=== PATIENT | male | born 1965 | race African-American/Black ===

== ENCOUNTER 2022-12-18 21:48 | Emergency (ER) | payer SELFPAY ==
[2022-12-18] MEDS ORDERED: Famotidine 20 MG/2 ML SDV IVPUSH ONE (23:16)
[2022-12-18] MEDS ORDERED: Sodium Chloride 0.9% 500 ML IV ONE (23:16)
[2022-12-18] MEDS ORDERED: Ondansetron 4 MG/2 ML SDV IVPUSH ONE (23:16)
[2022-12-18] MEDS ORDERED: Morphine 4 MG/ML Syringe IVPUSH ONE (23:16)
[2022-12-18 23:27] LABS: BASOPHILS PERCENT AUTO 0.1 % (0.0-1.5); EOSINOPHILS ABSOLUTE AUTO 0.2 K/uL (0.0-0.7); EOSINOPHILS PERCENT AUTO 3.3 % (0.0-7.0); HEMATOCRIT 44.5 % (38.0-50.0); HEMOGLOBIN 15.7 g/dL (13.0-17.0); LYMPHOCYTES ABSOLUTE AUTO 1.2 K/uL (0.6-2.4); LYMPHOCYTES PERCENT AUTO 16.9 % (16.0-40.0); MEAN CORPUSCULAR HEMOGLOBIN 29.7 pg (27.0-32.0); MEAN CORPUSCULAR HGB CONC 35.3 g/dL (31.0-37.0); MEAN CORPUSCULAR VOLUME 84.3 fL (80.0-98.0); MONOCYTES ABSOLUTE AUTO 0.6 K/uL (0.0-0.8); MONOCYTES PERCENT AUTO 9.2 % (0.0-15.0); NEUTROPHILS ABSOLUTE AUTO 4.9 K/uL (1.4-5.7); NEUTROPHILS PERCENT AUTO 70.5 % (48.0-80.0); NRBC ABSOLUTE 0 K/uL; PLATELET COUNT,PLT 164 K/uL (150-400); RED BLOOD CELL COUNT 5.28 M/uL (4.50-5.90); WHITE BLOOD CELL COUNT,WBC 6.92 K/uL (4.0-11.0)
[2022-12-19 00:01] LABS: LACTIC ACID 1.1 mmol/L (0.4-2.0)
[2022-12-19 00:03] LABS: ALBUMIN 3.9 g/dL (3.4-5.0); BILIRUBIN TOTAL 0.6 mg/dL (0.2-1.0); CALCIUM 9.1 mg/dL (8.5-10.1); CREATININE 1.2 mg/dL (0.8-1.3); EST CRCL DRUG DOSING (CG) 81.38 mL/min; MAGNESIUM 2.1 mg/dL (1.8-2.4); POTASSIUM,K 4.5 mmol/L (3.5-5.1); PROTEIN TOTAL,TP 7.9 g/dL (6.4-8.2)
[2022-12-19] MEDS ORDERED: Labetalol 100 MG/20 ML MDV IVPUSH ONE (00:10)
[2022-12-19] MEDS ORDERED: Iopamidol 755 MG/ML 500 ML Multipack Bottle IVPUSH STA (00:39)
[2022-12-19] MEDS ORDERED: Morphine 4 MG/ML Syringe IVPUSH ONE (00:40)
[2022-12-19] MEDS ORDERED: hydrALAZINE 20 MG/ML SDV IVPUSH ONE ×2 (00:41→01:11)
== END 2022-12-19 02:01 | disposition home or self-care (01) ==
LOC: MW.ED 21:48
DX: K52.9 Noninfective gastroenteritis and colitis, unspecified (principal); I10 Essential (primary) hypertension; Z20.822 Contact with and (suspected) exposure to COVID-19
CPT/HCPCS: 36415; 71045; 71275; 74174; 80053; 83605; 83690; 83735; 84484; 85025; 87635; 93005; 96374; 96375; 96376; 99284; J0360; J2270; J2405; J3490; J7030; Q9967; U0002